=== PATIENT | male | born 1990 | race Two or more races ===

== ENCOUNTER 2016-11-27 16:08 | Emergency (ER) | payer OTHER ==
[2016-11-27 17:31] VITALS: BP 109/55
[2016-11-27 18:13] LABS: Hematocrit 44 % (42-52); Hemoglobin 14.4 g/dl (14.0-18.0); Mean Corpuscular HGB Conc 33 g/dl (31-36); Mean Corpuscular Hemoglobin 28 pg (27-31); Mean Corpuscular Volume 86 fL (80-94); Mean Platelet Volume 9 um3 (7.4-10.4); Red Blood Count 5.07 10^6/ul (4.0-5.4); Red Cell Distribution Width 13 % (10.5-15)
[2016-11-27 18:28] LABS: Albumin 4.3 g/dL (3.2-5.2); BUN/Creatinine Ratio 16.5 (8-20); C Reactive Protein 7.37 mg/L (< 5.00); Calcium 9.4 mg/dL (8.6-10.3); EGFR African American 114.1 (>60); EGFR Non-African American 88.7 (>60); Potassium 3.5 mmol/L (3.5-5.0); Total Bilirubin 0.4 mg/dL (0.2-1.0); Total Protein 7.3 g/dL (6.4-8.9)
[2016-11-27 18:29] LABS: Urine Bilirubin Negative (Negative); Urine Glucose Negative (Negative); Urine Nitrite Negative (Negative)
--- NOTE | 2016-11-27 18:33 | ED ---
Abdominal Pain/Male - HPI Summary HPI Summary: Patient presents to ED with CC of bilateral lower abdominal pain which was present 3 days ago and since resolved. Associated 1x N/V three days ago. He has been feeling improved since that time. Denies other symptoms, fatigue, FELIX. Has been tolerating PO well and denies constipation or diarrhea. He spoke with [facility] today who sent him here to possibly r/o appy d/t "lower abd pain." Denies fever. Pain was 5/10 at its worse and is 0/10 currently . He states his appetite is still somewhat suppressed but denies any other sxs. - History of Current Complaint Chief Complaint: EDAbdPain Stated Complaint: LOWER ABD PAIN Time Seen by Provider: 11/27/16 17:18 Hx Obtained From: Patient Onset/Duration: Sudden Onset, Resolved Timing: Constant Severity Initially: Moderate Severity Currently: None Pain Intensity: 3 Pain Scale Used: 0-10 Numeric Location: Discrete At: RLQ, Discrete At: LLQ Radiates: No Character: Sharp Aggravating Factor(s): Nothing Alleviating Factor(s): Spontaneous Resolution Associated Signs And Symptoms: Positive: Decreased Appetite - Risk Factors Testicular Torsion: Negative Cardiac Risk Factors: Negative PMH/Surg Hx/FS Hx/Imm Hx Previously Healthy: Yes - Immunization History Hx Pertussis Vaccination: No Immunizations Up to Date: Unable to Obtain/Confirm Infectious Disease History: No Infectious Disease History: Denies: Traveled Outside the [place] in Last 30 Days - Social History Occupation: Unemployed Lives: Alone Alcohol Use: Rare Hx Substance Use: No Substance Use Type: Reports: None Hx Tobacco Use: No Smoking Status (MU): Never Smoked Tobacco Do You Chew or Dip Tobacco: No Review of Systems Constitutional: Negative Eyes: Negative Cardiovascular: Negative Respiratory: Negative Positive: Abdominal Pain, Vomiting, Nausea Positive: no symptoms reported, see HPI Musculoskeletal: Negative Skin: Negative Psychological: Normal All Other Systems Reviewed And Are Negative: Yes Physical Exam Triage Information Reviewed: Yes Vital Signs On Initial Exam: Initial Vitals Temp Pulse Resp BP Pulse Ox 99.6 F 68 16 127/67 100 11/27/16 16:09 11/27/16 16:09 11/27/16 16:09 11/27/16 16:09 11/27/16 16:09 Vital Signs Reviewed: Yes Appearance: Positive: Well-Appearing, No Pain Distress, Well-Nourished Skin: Positive: Warm, Skin Color Reflects Adequate Perfusion Eyes: Positive: EOMI, DAMION, Conjunctiva Clear Neck: Positive: Supple, Nontender, No Lymphadenopathy Respiratory/Lung Sounds: Positive: Clear to Auscultation, Breath Sounds Present Cardiovascular: Positive: Normal, RRR Abdomen Description: Positive: Nontender, Soft Bowel Sounds: Positive: Present Musculoskeletal: Positive: Normal, Strength/ROM Intact Neurological: Positive: Sensory/Motor Intact, Alert, Oriented to Person Place, Time, Speech Normal Psychiatric: Positive: Normal - [place] Coma Scale Coma Scale Total: 15 Diagnostics - Vital Signs Vital Signs Temp Pulse Resp BP Pulse Ox 11/27/16 17:20 65 99 11/27/16 17:18 109/55 11/27/16 16:09 99.6 F 68 16 127/67 100 - Laboratory Lab Results: Lab Results 11/27/16 Range/Units 18:00 WBC 7.0 (3.5-10.8) 10^3/ul RBC 5.07 (4.0-5.4) 10^6/ul Hgb 14.4 (14.0-18.0) g/dl Hct 44 (42-52) % MCV 86 (80-94) fL MCH 28 (27-31) pg MCHC 33 (31-36) g/dl RDW 13 (10.5-15) % Plt Count 186 (150-450) 10^3/ul MPV 9 (7.4-10.4) um3 Neut % (Auto) 54.0 (38-83) % Lymph % (Auto) 35.3 (25-47) % [place] % (Auto) 8.0 (1-9) % Eos % (Auto) 2.2 (0-6) % Baso % (Auto) 0.5 (0-2) % Absolute Neuts (auto) 3.8 (1.5-7.7) 10^3/ul Absolute Lymphs (auto) 2.5 (1.0-4.8) 10^3/ul Absolute Monos (auto) 0.6 (0-0.8) 10^3/ul Absolute Eos (auto) 0.2 (0-0.6) 10^3/ul Absolute Basos (auto) 0 (0-0.2) 10^3/ul Absolute Nucleated RBC 0 10^3/ul Nucleated RBC % 0.1 Result Diagrams: 11/27/16 18:00 11/27/16 18:00 Lab Statement: Any lab studies that have been ordered have been reviewed, and results considered in the medical decision making process. Abdominal Pain Fem Course/Dx - Course Course Of Treatment: Abd pain since subsided 3 days ago. No tenderness in abd. Abd soft with no organomegaly. Bowel sounds hyperactive. Denies previous abd surgeries. No tenderness in the RLQ over mcburney's point. New's sign negative. Labs WNL. Afebrile. UA WNL. Return precautions given. Encouraged Senna OTC for any constipation as he has endorsed episodes of such recently. Patient is OK with discharge and will follow up with Steve as needed. - Diagnoses Differential Diagnosis/HQI/PQRI: Appendicitis, Bowel Obstruction, Constipation, Urinary Tract Infection Provider Diagnoses: Abdominal pain, acute Discharge - Discharge Plan Condition: Stable Disposition: HOME Patient Education Materials: Acute Abdominal Pain (ED) Referrals: STEVE Galan [Primary Care Provider] - Additional Instructions: Follow up with Steve as needed Senna over the counter (take 1 pill at bedtime) for any constipation sxs. If you develop worsening pain by tomorrow, return to ED immediately. We have a low suspicion for appendicitis, gall bladder disease and UTI based on labs and results.
== END 2016-11-27 19:10 | disposition home or self-care (01) ==
LOC: ED 16:08
DX: R10.30 Lower abdominal pain, unspecified (principal); R11.2 Nausea with vomiting, unspecified
CPT/HCPCS: 36415; 80053; 81003; 85025; 86140; 99282